=== PATIENT | male | born 1950 | race African-American/Black ===

== ENCOUNTER 2016-08-17 15:50 | Inpatient (IN) | payer MEDICAID ==
[~2016-08-17] VITALS: Ht 182.9 cm; Wt 88.1 kg
[~2016-08-17 15:50] MED LIST: ACET160S3 GT; ALBU2.5V38 IH; AMIN30LI4 GT; ASCO500S2 GT; BLOO-697 IN; CALC500T3 GT; CARV6.252 GT; CLON0.1T GT; CYAN500T4 GT; DOCU50LI GT; DOXA2TAB GT; FERR220S2 GT; FOLI1TAB16 GT; HYDR-4077 GT; HYDR-552 GT; INSU100I19 SQ; INSU100V3 SQ; IPRA0.2S9 IH; LORA10TA68 GT; LORA1TAB82 GT; MULT-213 GT; NITR1OIN2 TD; NUT.237L67 GT; POLY15DR57 EACHEYE; SITA100T GT; THIA100V2 GT; TRAM50TA2 GT; ZINC220C8 GT
[2016-08-17 16:15] VITALS: BP 147/68
[2016-08-17] MEDS ORDERED: LORA0.5T GT (16:28)
[2016-08-17] MEDS ORDERED: NUT.237L30 GT (16:28)
[2016-08-17] MEDS ORDERED: ACID1TAB12 GT (16:28)
[2016-08-17] MEDS ORDERED: OMEP40CA37 GT (16:28)
[2016-08-17 17:03] LABS: HEMATOCRIT 23 % (39-51); MEAN CORPUSCULAR HEMOGLOBIN 19 PG (26.0-33.0); MEAN CORPUSCULAR HGB CONC 26 g/dl (31.0-36.0); MEAN CORPUSCULAR VOLUME 70 fL (80-96); PLATELET COUNT (AUTO) 385 /CMM (150-450); WHITE BLOOD COUNT (AUTO) 23.4 K/uL (4.3-11.0)
[2016-08-17 17:06] LABS: HEMOGLOBIN 5.9 g/dL (13.5-17.5)
[2016-08-17 17:08] LABS: ANION GAP 14 (5-14); CALCIUM, SERUM 8.2 mg/dL (8.5-10.1); CARBON DIOXIDE 28 mmol/L (21-32); CHLORIDE 101 mmol/L (98-107); CREATININE 2.8 mg/dL (0.6-1.3); GFR 28 mL/min (>60); GLUCOSE 119 mg/dL (74-106); SODIUM SERUM 137 mmol/L (136-145); UREA NITROGEN, BLOOD 61 mg/dL (7-18)
[2016-08-17 17:11] LABS: INR 1.24 (0.87-1.13)
[2016-08-17 17:14] LABS: ALANINE AMINOTRANSFERASE 12 U/L (12-78); ALBUMIN 2.5 g/dL (3.4-5.0); ASPARTATE AMINOTRANSFERASE 9 U/L (15-37); BILIRUBIN,DIRECT 0.1 mg/dL (0.0-0.2); BILIRUBIN,TOTAL 0.3 mg/dL (0.2-1.0); INDIRECT BILIRUBIN 0.2 mg/dL (0.0-1.1); TOTAL PROTEIN, SERUM 8.3 g/dL (6.4-8.2); TROPONIN I < 0.017 ng/mL (0.00-0.056)
[2016-08-17 20:00] VITALS: BP_SYST 134; BP_DIAS 69; BP_DIAS 9
[2016-08-17] MEDS ORDERED: IPRATROPIUM NEB FS 0.5 MG/2.5 ML AMPUL.NEB IH PRN (20:00)
[2016-08-17] MEDS ORDERED: TRAMADOL HCL 50 MG TABLET GT PRN (20:00)
[2016-08-17] MEDS ORDERED: ALBUTEROL FS 2.5 MG/3 ML VIAL.NEB IH PRN (20:00)
[2016-08-17] MEDS ORDERED: LORAZEPAM 0.5 MG TABLET GT PRN (20:00)
[2016-08-17] MEDS ORDERED: SITAGLIPTIN PHOSPHATE 50 MG TABLET GT SCH (20:30)
[2016-08-17] MEDS ORDERED: DEXTROSE 50%-WATER 50 ML DISP.SYRIN IV PRN (20:30)
[2016-08-17] MEDS: DOXAZOSIN MESYLATE (1 MG) 1 MG TABLET GT SCH ×2 (20:55→21:00)
[2016-08-17] MEDS: hydrALAZINE HCL 50 MG TABLET GT SCH (20:55)
[2016-08-17] MEDS: CARVEDILOL 6.25 MG TABLET GT SCH (20:56)
[2016-08-17] MEDS: GLYTROL 1,000 ML BAG GT SCH (20:56)
[2016-08-17 21:43] LABS: EOSINOPHILS % (MANUAL) 2 % (0-4); LYMPHOCYTES % (MANUAL) 13 % (16-48)
[2016-08-17 21:45] LABS: PLATELET ESTIMATE ADEQUATE
[2016-08-17 21:46] LABS: ANISOCYTOSIS 1+; HYPOCHROMASIA 1+; MICROCYTOSIS 1+
[2016-08-18] VITALS: BP 129/55
[2016-08-18] MEDS ORDERED: BLOOD SUGAR DIAGNOSTIC 1 EACH STRIP IN SCH
[2016-08-18] MEDS: BLOOD SUGAR DIAGNOSTIC 1 EACH STRIP IN SCH ×4 (00:33→17:45)
[2016-08-18] MEDS ORDERED: NITROGLYCERIN PACKET 1 GM PACKET ONE (00:44)
[2016-08-18] MEDS: INSULIN REGULAR, HUMAN 100 UNIT/ML 3 ML VIAL SQ PRN ×4 (00:45→19:27)
[2016-08-18] MEDS: NITROGLYCERIN PACKET 1 GM PACKET TD SCH ×2 (00:51→05:27)
[2016-08-18] MEDS: IPRATROPIUM NEB FS 0.5 MG/2.5 ML AMPUL.NEB IH SCH ×4 (01:37→19:56)
[2016-08-18 04:00] VITALS: BP 142/61
[2016-08-18] MEDS: hydrALAZINE HCL 50 MG TABLET GT SCH ×3 (05:28→21:05)
[2016-08-18] MEDS: INSULIN DETEMIR 100 UNIT/ML CARTRIDGE SQ SCH ×2 (05:29→18:04)
[2016-08-18 06:45] LABS: BASOPHILS % (AUTO) 0.1 % (0.0-2.0); DIFF TOTAL % 100 %; EOSINOPHILS # (AUTO) 0.2 /CMM (0.0-0.7); LYMPHOCYTES # (AUTO) 1.3 /CMM (0.8-4.8); LYMPHOCYTES % (AUTO) 5.8 % (20.0-44.0); MEAN CORPUSCULAR HEMOGLOBIN 23 PG (26.0-33.0); MEAN CORPUSCULAR HGB CONC 32 g/dl (31.0-36.0); MEAN CORPUSCULAR VOLUME 71 fL (80-96); MONOCYTES % (AUTO) 4.5 % (2.0-12.0); NEUTROPHILS # (AUTO) 20.1 /CMM (1.8-8.9); NEUTROPHILS % (AUTO) 88.6 % (43.0-81.0); PLATELET COUNT (AUTO) 308 /CMM (150-450); RED BLOOD CELL COUNT(AUTO) 2.83 MIL/uL (4.5-6.0); WHITE BLOOD COUNT (AUTO) 22.7 K/uL (4.3-11.0)
[2016-08-18 07:05] LABS: POTASSIUM 4.9 mmol/L (3.5-5.1)
[2016-08-18 07:08] LABS: KETONES,URINE NEGATIVE (NEGATIVE); LEUKOCYTE ESTERASE ,URINE NEGATIVE (NEGATIVE); PH,URINE 7.5 (5.0-8.0)
[2016-08-18 07:19] LABS: ADD UA MICROSCOPIC YES
[2016-08-18 07:35] LABS: LACTIC ACID 0.6 mmol/L (0.4-2.0)
[2016-08-18] MEDS ORDERED: LEVALBUTEROL HCL NEB 1.25 MG/0.5 ML VIAL.NEB NEB SCH (07:35)
[2016-08-18 07:41] LABS: HEMOGLOBIN 6.5 g/dL (13.5-17.5)
[2016-08-18 07:42] LABS: HEMATOCRIT 20 % (39-51)
[2016-08-18 07:50] LABS: ADD URINE CULTURE NO; MUCUS,URINE Few /LPF (None Seen); RBC,URINE 0-2 /HPF (0-2); WBC,URINE 0-2 /HPF (0-3)
[2016-08-18] MEDS: ALBUTEROL FS 2.5 MG/3 ML VIAL.NEB IH SCH ×3 (07:52→19:56)
[2016-08-18 07:58] LABS: ANISOCYTOSIS 3+; BAND % (MANUAL) 10 % (0.0-5.0); EOSINOPHILS % (MANUAL) 2 % (0-4); LYMPHOCYTES % (MANUAL) 3 % (16-48); MICROCYTOSIS 3+; PLATELET ESTIMATE ADEQUATE
[2016-08-18 07:59] LABS: HYPOCHROMASIA 2+; POLYCHROMASIA 1+; SPHEROCYTES 1+; TOXIC GRANULATION 1+
[2016-08-18 08:00] VITALS: BP 146/67
[2016-08-18] MEDS ORDERED: ASCORBIC ACID SYRUP 500 MG/5 ML UDC GT SCH (09:00)
[2016-08-18] MEDS: FERROUS SULFATE (325 MG) 325 MG/TAB TABLET GT SCH (09:28)
[2016-08-18] MEDS: SITAGLIPTIN PHOSPHATE 50 MG TABLET GT SCH (09:29)
[2016-08-18] MEDS: CYANOCOBALAMIN 500 MCG TABLET GT SCH (09:29)
[2016-08-18] MEDS: PANTOPRAZOLE 40 MG/PACK PACK GT SCH (09:29)
[2016-08-18] MEDS: ACIDOPHILUS/BULGARICUS 1 EACH TAB.CHEW GT SCH ×2 (09:30→17:59)
[2016-08-18] MEDS: DOCUSATE SODIUM LIQ 100 MG/10 ML UDC GT SCH (09:31)
[2016-08-18] MEDS: MULTIVIT, IRON, MIN NO. 8, FA 1 TAB TABLET GT SCH (09:31)
[2016-08-18] MEDS: FOLIC ACID 1 MG TABLET GT SCH (09:31)
[2016-08-18] MEDS: POLYVINYL ALCOHOL 15 ML BOTTLE EACHEYE SCH ×4 (09:31→21:05)
[2016-08-18] MEDS: THIAMINE HCL 100 MG TABLET GT SCH (09:31)
[2016-08-18] MEDS: CARVEDILOL 6.25 MG TABLET GT SCH ×2 (09:31→21:05)
[2016-08-18] MEDS: GLYTROL 1,000 ML BAG GT SCH ×2 (09:32→21:09)
[2016-08-18] MEDS ORDERED: Medication Not On Formulary EA (Omeprazole 40 MG) GT SCH (11:30)
[2016-08-18 12:00] VITALS: BP 139/78
[2016-08-18] MEDS: NITROGLYCERIN 30 GM TUBE TD SCH ×2 (12:40→18:04)
[2016-08-18] MEDS ORDERED: EPOETIN ALFA (20,000 UNIT) 20,000 UNIT/ML VIAL SQ ONE (15:00)
[2016-08-18 15:43] LABS: %FREE PSA 10.9 % (0-10); FREE PSA 0.29 ng/mL (0.00-45); THYROID STIMULATING HORMONE 3.95 uIU/mL (0.358-3.74); URIC ACID 7.4 mg/dL (2.6-7.2)
[2016-08-18 16:00] VITALS: BP 140/56
[2016-08-18 16:10] LABS: RETICULOCYTE COUNT 2.3 % (0.6-2.5)
[2016-08-18 16:45] LABS: ERYTHROCYTE SEDIMENTATION RATE > 140 MM/HR (0-20)
[2016-08-18 20:00] VITALS: BP 122/52
[2016-08-18] MEDS: DOXAZOSIN MESYLATE (1 MG) 1 MG TABLET GT SCH (21:05)
[2016-08-18] MEDS: ACETAMINOPHEN 650 MG/20.3 ML UDC GT PRN (21:09)
[2016-08-18] MEDS ORDERED: MEROPENEM 500 MG in IV NS 0.9% 50 ML IV SCH (21:30)
[2016-08-18] MEDS ORDERED: METRONIDAZOLE 500 MG TABLET ONE (22:27)
[2016-08-18] MEDS ORDERED: MEROPENEM 500 MG VIAL IV ONE (22:42)
[2016-08-18] MEDS ORDERED: BLOOD IV SET 1 EA INFUS.SET MC ONE (23:02)
[2016-08-18] MEDS ORDERED: IV SET PRIMARY PUMP SET 1 EA INFUS.SET MC ONE (23:03)
[2016-08-18] MEDS ORDERED: IV NS 0.9% 50 ML IV ONE (23:03)
[2016-08-18] MEDS ORDERED: IV NS 0.9% 250 ML IV ONE ×2 (23:03)
[2016-08-18] MEDS ORDERED: SECONDARY IV SET 1 EA INFUS.SET MC ONE (23:04)
[2016-08-19] VITALS (14 sets, daily range): BP systolic 101–159; BP diastolic 47–71
[2016-08-19] MEDS: BLOOD SUGAR DIAGNOSTIC 1 EACH STRIP IN SCH ×4 (00:06→17:04)
[2016-08-19] MEDS: INSULIN REGULAR, HUMAN 100 UNIT/ML 3 ML VIAL SQ PRN ×3 (00:18→17:05)
[2016-08-19] MEDS: METRONIDAZOLE 500 MG TABLET PO SCH ×4 (00:19→16:59)
[2016-08-19] MEDS: NITROGLYCERIN 30 GM TUBE TD SCH ×5 (00:30→17:06)
[2016-08-19] MEDS: IPRATROPIUM NEB FS 0.5 MG/2.5 ML AMPUL.NEB IH SCH ×4 (02:19→20:30)
[2016-08-19] MEDS: ALBUTEROL FS 2.5 MG/3 ML VIAL.NEB IH SCH ×4 (02:19→20:30)
[2016-08-19] MEDS ORDERED: IV NS 0.9% 250 ML IV ONE (03:33)
[2016-08-19] MEDS ORDERED: BLOOD IV SET 1 EA INFUS.SET MC ONE (03:33)
[2016-08-19] MEDS: INSULIN DETEMIR 100 UNIT/ML CARTRIDGE SQ SCH ×2 (05:48→17:05)
[2016-08-19] MEDS: hydrALAZINE HCL 50 MG TABLET GT SCH ×3 (05:53→20:12)
[2016-08-19 07:52] LABS: BASOPHILS % (AUTO) 0.1 % (0.0-2.0); DIFF TOTAL % 100 %; EOSINOPHILS # (AUTO) 0.2 /CMM (0.0-0.7); HEMATOCRIT 24 % (39-51); HEMOGLOBIN 7.8 g/dL (13.5-17.5); LYMPHOCYTES # (AUTO) 1.9 /CMM (0.8-4.8); LYMPHOCYTES % (AUTO) 9.4 % (20.0-44.0); MEAN CORPUSCULAR HEMOGLOBIN 25 PG (26.0-33.0); MEAN CORPUSCULAR HGB CONC 33 g/dl (31.0-36.0); MEAN CORPUSCULAR VOLUME 75 fL (80-96); MONOCYTES # (AUTO) 0.4 /CMM (0.1-1.30); MONOCYTES % (AUTO) 1.9 % (2.0-12.0); NEUTROPHILS # (AUTO) 17.9 /CMM (1.8-8.9); NEUTROPHILS % (AUTO) 87.6 % (43.0-81.0); PLATELET COUNT (AUTO) 290 /CMM (150-450); RED BLOOD CELL COUNT(AUTO) 3.17 MIL/uL (4.5-6.0); WHITE BLOOD COUNT (AUTO) 20.4 K/uL (4.3-11.0)
[2016-08-19 08:19] LABS: CALCIUM, SERUM 7.9 mg/dL (8.5-10.1); CREATININE 3.4 mg/dL (0.6-1.3); PHOSPHORUS 3.7 mg/dL (2.5-4.9)
[2016-08-19] MEDS: DOCUSATE SODIUM LIQ 100 MG/10 ML UDC GT SCH (08:28)
[2016-08-19] MEDS: MULTIVIT, IRON, MIN NO. 8, FA 1 TAB TABLET GT SCH (08:28)
[2016-08-19] MEDS: SITAGLIPTIN PHOSPHATE 50 MG TABLET GT SCH (08:29)
[2016-08-19] MEDS: THIAMINE HCL 100 MG TABLET GT SCH (08:29)
[2016-08-19] MEDS: CYANOCOBALAMIN 500 MCG TABLET GT SCH (08:29)
[2016-08-19] MEDS: FOLIC ACID 1 MG TABLET GT SCH (08:29)
[2016-08-19] MEDS: FERROUS SULFATE (325 MG) 325 MG/TAB TABLET GT SCH (08:29)
[2016-08-19] MEDS: ASCORBIC ACID 500 MG TABLET GT SCH (08:30)
[2016-08-19] MEDS: PANTOPRAZOLE 40 MG/PACK PACK GT SCH (08:30)
[2016-08-19] MEDS: CARVEDILOL 6.25 MG TABLET GT SCH ×2 (08:30→20:12)
[2016-08-19] MEDS: POLYVINYL ALCOHOL 15 ML BOTTLE EACHEYE SCH ×4 (08:33→20:52)
[2016-08-19] MEDS ORDERED: LINEZOLID 600 MG TABLET PO SCH (09:00)
[2016-08-19] MEDS ORDERED: ASCORBIC ACID 500 MG TABLET GT SCH (09:00)
[2016-08-19 09:05] LABS: ANISOCYTOSIS 2+; BAND % (MANUAL) 8 % (0.0-5.0); EOSINOPHILS % (MANUAL) 2 % (0-4); LYMPHOCYTES % (MANUAL) 10 % (16-48); METAMYELOCYTES % 1 % (0-0); MICROCYTOSIS 2+; MYELOCYTES % 1 % (0-0); PLATELET ESTIMATE ADEQUATE; SPHEROCYTES 1+
[2016-08-19 09:06] LABS: HYPOCHROMASIA 1+; POLYCHROMASIA 1+
[2016-08-19] MEDS: ACIDOPHILUS/BULGARICUS 1 EACH TAB.CHEW GT SCH ×2 (09:21→16:37)
[2016-08-19] MEDS: GLYTROL 1,000 ML BAG GT SCH (10:09)
[2016-08-19] MEDS: MEROPENEM 500 MG in IV NS 0.9% 50 ML IV SCH ×2 (10:36→20:51)
[2016-08-19] MEDS ORDERED: FEE PK DOSING 1 MIN EA MC ONE (11:27)
[2016-08-19] MEDS ORDERED: VANCOMYCIN 1.25 GM in IV D5W 500 ML IV SCH (12:00)
[2016-08-19] MEDS ORDERED: SECONDARY IV SET 1 EA INFUS.SET MC ONE (12:41)
[2016-08-19] MEDS ORDERED: VANCOMYCIN 1 GM in IV D5W 250 ML IV ONE (13:00)
[2016-08-19] MEDS: DOXAZOSIN MESYLATE (1 MG) 1 MG TABLET GT SCH (20:51)
[2016-08-19] MEDS: COLISTIMETHATE SODIUM 150 MG VIAL NEB SCH (21:51)
[2016-08-20] VITALS (8 sets, daily range): BP systolic 130–165; BP diastolic 63–81
[2016-08-20] MEDS: METRONIDAZOLE 500 MG TABLET PO SCH ×4 (00:11→17:23)
[2016-08-20] MEDS: NITROGLYCERIN 30 GM TUBE TD SCH ×4 (00:11→17:40)
[2016-08-20] MEDS: BLOOD SUGAR DIAGNOSTIC 1 EACH STRIP IN SCH ×4 (00:19→17:24)
[2016-08-20] MEDS: INSULIN REGULAR, HUMAN 100 UNIT/ML 3 ML VIAL SQ PRN ×4 (00:25→17:36)
[2016-08-20] MEDS: GLYTROL 1,000 ML BAG GT SCH ×2 (00:26→17:38)
[2016-08-20] MEDS: ALBUTEROL FS 2.5 MG/3 ML VIAL.NEB IH SCH ×4 (01:30→20:22)
[2016-08-20] MEDS: IPRATROPIUM NEB FS 0.5 MG/2.5 ML AMPUL.NEB IH SCH ×4 (01:30→20:22)
[2016-08-20] MEDS: hydrALAZINE HCL 50 MG TABLET GT SCH ×3 (05:08→21:57)
[2016-08-20] MEDS: INSULIN DETEMIR 100 UNIT/ML CARTRIDGE SQ SCH ×2 (05:31→17:41)
[2016-08-20 07:24] LABS: ALBUMIN 2.2 g/dL (3.4-5.0); BILIRUBIN,TOTAL 0.3 mg/dL (0.2-1.0); CREATININE 3.2 mg/dL (0.6-1.3); POTASSIUM 4.7 mmol/L (3.5-5.1); TOTAL PROTEIN, SERUM 8.1 g/dL (6.4-8.2)
[2016-08-20] MEDS: POLYVINYL ALCOHOL 15 ML BOTTLE EACHEYE SCH ×4 (08:43→21:56)
[2016-08-20] MEDS: DOCUSATE SODIUM LIQ 100 MG/10 ML UDC GT SCH (08:43)
[2016-08-20] MEDS: FOLIC ACID 1 MG TABLET GT SCH (08:44)
[2016-08-20] MEDS: CARVEDILOL 6.25 MG TABLET GT SCH ×2 (08:44→21:57)
[2016-08-20] MEDS: SITAGLIPTIN PHOSPHATE 50 MG TABLET GT SCH (08:44)
[2016-08-20] MEDS: FERROUS SULFATE (325 MG) 325 MG/TAB TABLET GT SCH (08:44)
[2016-08-20] MEDS: ACIDOPHILUS/BULGARICUS 1 EACH TAB.CHEW GT SCH ×2 (08:45→17:23)
[2016-08-20] MEDS: MULTIVIT, IRON, MIN NO. 8, FA 1 TAB TABLET GT SCH (08:45)
[2016-08-20] MEDS: PANTOPRAZOLE 40 MG/PACK PACK GT SCH (08:45)
[2016-08-20] MEDS: PROSOURCE / PROSTAT (PYXIS) 30 ML UDC GT SCH ×2 (08:45→17:24)
[2016-08-20] MEDS: ASCORBIC ACID 500 MG TABLET GT SCH (08:46)
[2016-08-20] MEDS: CYANOCOBALAMIN 500 MCG TABLET GT SCH (08:46)
[2016-08-20] MEDS: THIAMINE HCL 100 MG TABLET GT SCH (08:46)
[2016-08-20] MEDS: MEROPENEM 500 MG in IV NS 0.9% 50 ML IV SCH ×2 (09:08→21:57)
[2016-08-20] MEDS: COLISTIMETHATE SODIUM 150 MG VIAL NEB SCH ×2 (09:52→21:00)
[2016-08-20] MEDS: HYDROGEL DRESSING 90 GM TUBE TP SCH (12:24)
[2016-08-20 14:08] LABS: BASOPHILS % (AUTO) 0.2 % (0.0-2.0); DIFF TOTAL % 100 %; EOSINOPHILS # (AUTO) 0.7 /CMM (0.0-0.7); EOSINOPHILS % (AUTO) 4.1 % (0.0-6.0); HEMATOCRIT 27 % (39-51); HEMOGLOBIN 8.5 g/dL (13.5-17.5); LYMPHOCYTES # (AUTO) 1.8 /CMM (0.8-4.8); LYMPHOCYTES % (AUTO) 10.2 % (20.0-44.0); MEAN CORPUSCULAR HEMOGLOBIN 24 PG (26.0-33.0); MEAN CORPUSCULAR HGB CONC 32 g/dl (31.0-36.0); MEAN CORPUSCULAR VOLUME 75 fL (80-96); MONOCYTES # (AUTO) 0.1 /CMM (0.1-1.30); MONOCYTES % (AUTO) 0.6 % (2.0-12.0); NEUTROPHILS # (AUTO) 15.2 /CMM (1.8-8.9); NEUTROPHILS % (AUTO) 84.9 % (43.0-81.0); PLATELET COUNT (AUTO) 302 /CMM (150-450); RED BLOOD CELL COUNT(AUTO) 3.58 MIL/uL (4.5-6.0); WHITE BLOOD COUNT (AUTO) 17.9 K/uL (4.3-11.0)
[2016-08-20 14:31] LABS: BAND % (MANUAL) 9 % (0.0-5.0); EOSINOPHILS % (MANUAL) 4 % (0-4); LYMPHOCYTES % (MANUAL) 10 % (16-48)
[2016-08-20 14:32] LABS: PLATELET ESTIMATE ADEQUATE
[2016-08-20 14:34] LABS: ANISOCYTOSIS 2+; HYPOCHROMASIA 1+; MICROCYTOSIS 2+
[2016-08-20 14:35] LABS: SPHEROCYTES 1+
[2016-08-20] MEDS ORDERED: VANCOMYCIN 1 GM in IV D5W 250 ML IV ONE (17:00)
[2016-08-20] MEDS: UREA 10% -AHA 4% CREAM 57 GM TUBE TP SCH (17:24)
[2016-08-20] MEDS ORDERED: IV NS 0.9% 250 ML IV ONE (18:46)
[2016-08-20] MEDS: DOXAZOSIN MESYLATE (1 MG) 1 MG TABLET GT SCH (21:57)
[2016-08-21] VITALS: BP 114/52
[2016-08-21] MEDS: METRONIDAZOLE 500 MG TABLET PO SCH ×5 (00:19→23:39)
[2016-08-21] MEDS: COLISTIMETHATE SODIUM 150 MG VIAL NEB SCH ×3 (00:20→21:10)
[2016-08-21] MEDS: NITROGLYCERIN 30 GM TUBE TD SCH ×5 (00:20→23:39)
[2016-08-21] MEDS: BLOOD SUGAR DIAGNOSTIC 1 EACH STRIP IN SCH ×5 (00:24→23:38)
[2016-08-21] MEDS: INSULIN REGULAR, HUMAN 100 UNIT/ML 3 ML VIAL SQ PRN ×5 (00:26→23:47)
[2016-08-21 01:11] LABS: VIT D, 25-HYDROXY 19.5 ng/mL (30.0-100.0)
[2016-08-21] MEDS: ALBUTEROL FS 2.5 MG/3 ML VIAL.NEB IH SCH ×4 (02:05→19:19)
[2016-08-21] MEDS: IPRATROPIUM NEB FS 0.5 MG/2.5 ML AMPUL.NEB IH SCH ×4 (02:05→19:19)
[2016-08-21 04:00] VITALS: BP 162/76
[2016-08-21] MEDS ORDERED: IV NS 0.9% 250 ML IV ONE (05:06)
[2016-08-21] MEDS: hydrALAZINE HCL 50 MG TABLET GT SCH ×3 (05:29→21:36)
[2016-08-21] MEDS: INSULIN DETEMIR 100 UNIT/ML CARTRIDGE SQ SCH ×2 (05:32→18:03)
[2016-08-21] MEDS: GLYTROL 1,000 ML BAG GT SCH ×2 (05:35→18:11)
[2016-08-21 07:16] LABS: BASOPHILS % (AUTO) 0.2 % (0.0-2.0); DIFF TOTAL % 100 %; EOSINOPHILS # (AUTO) 1.1 /CMM (0.0-0.7); EOSINOPHILS % (AUTO) 5.9 % (0.0-6.0); HEMATOCRIT 28 % (39-51); HEMOGLOBIN 9.1 g/dL (13.5-17.5); LYMPHOCYTES # (AUTO) 1.3 /CMM (0.8-4.8); LYMPHOCYTES % (AUTO) 6.8 % (20.0-44.0); MEAN CORPUSCULAR HEMOGLOBIN 25 PG (26.0-33.0); MEAN CORPUSCULAR HGB CONC 32 g/dl (31.0-36.0); MEAN CORPUSCULAR VOLUME 76 fL (80-96); MONOCYTES # (AUTO) 1.3 /CMM (0.1-1.30); MONOCYTES % (AUTO) 6.8 % (2.0-12.0); NEUTROPHILS # (AUTO) 14.7 /CMM (1.8-8.9); NEUTROPHILS % (AUTO) 80.3 % (43.0-81.0); PLATELET COUNT (AUTO) 306 /CMM (150-450); RED BLOOD CELL COUNT(AUTO) 3.66 MIL/uL (4.5-6.0); WHITE BLOOD COUNT (AUTO) 18.3 K/uL (4.3-11.0)
[2016-08-21 07:51] LABS: CALCIUM, SERUM 8.1 mg/dL (8.5-10.1); CREATININE 2.9 mg/dL (0.6-1.3); PHOSPHORUS 3.3 mg/dL (2.5-4.9)
[2016-08-21 08:00] VITALS: BP 160/80
[2016-08-21] MEDS: PROSOURCE / PROSTAT (PYXIS) 30 ML UDC GT SCH ×2 (08:22→16:01)
[2016-08-21] MEDS: CYANOCOBALAMIN 500 MCG TABLET GT SCH (08:23)
[2016-08-21] MEDS: FOLIC ACID 1 MG TABLET GT SCH (08:23)
[2016-08-21] MEDS: THIAMINE HCL 100 MG TABLET GT SCH (08:23)
[2016-08-21] MEDS: MULTIVIT, IRON, MIN NO. 8, FA 1 TAB TABLET GT SCH (08:23)
[2016-08-21] MEDS: FERROUS SULFATE (325 MG) 325 MG/TAB TABLET GT SCH (08:23)
[2016-08-21] MEDS: ACIDOPHILUS/BULGARICUS 1 EACH TAB.CHEW GT SCH ×2 (08:23→16:01)
[2016-08-21] MEDS: PANTOPRAZOLE 40 MG/PACK PACK GT SCH (08:23)
[2016-08-21 08:24] LABS: *IFE A/G RATIO 0.6 (0.7-1.7); *IFE ALBUMIN 2.5 g/dL (2.9-4.4); *IFE GAMMA GLOBULIN 2.4 g/dL (0.4-1.8); *IFE M-SPIKE Not Observed g/dL (Not Observed); *IFEALPHA-1-GLOBULIN 0.5 g/dL (0.0-0.4)
[2016-08-21] MEDS: CARVEDILOL 6.25 MG TABLET GT SCH ×2 (08:24→21:36)
[2016-08-21] MEDS: SITAGLIPTIN PHOSPHATE 50 MG TABLET GT SCH (08:24)
[2016-08-21] MEDS: DOCUSATE SODIUM LIQ 100 MG/10 ML UDC GT SCH (08:24)
[2016-08-21] MEDS: ASCORBIC ACID 500 MG TABLET GT SCH (08:24)
[2016-08-21] MEDS: UREA 10% -AHA 4% CREAM 57 GM TUBE TP SCH ×2 (08:25→16:02)
[2016-08-21] MEDS: POLYVINYL ALCOHOL 15 ML BOTTLE EACHEYE SCH ×4 (08:25→21:36)
[2016-08-21] MEDS: HYDROGEL DRESSING 90 GM TUBE TP SCH (08:25)
[2016-08-21] MEDS: MEROPENEM 500 MG in IV NS 0.9% 50 ML IV SCH ×2 (10:26→21:37)
[2016-08-21 12:00] VITALS: BP 143/74
[2016-08-21 16:00] VITALS: BP 163/70
[2016-08-21 20:00] VITALS: BP 163/79
[2016-08-21] MEDS: DOXAZOSIN MESYLATE (1 MG) 1 MG TABLET GT SCH (21:36)
[2016-08-22] VITALS: BP 164/63
[2016-08-22] MEDS: ALBUTEROL FS 2.5 MG/3 ML VIAL.NEB IH SCH ×4 (01:32→19:39)
[2016-08-22] MEDS: IPRATROPIUM NEB FS 0.5 MG/2.5 ML AMPUL.NEB IH SCH ×4 (01:32→19:39)
[2016-08-22 04:00] VITALS: BP 173/83
[2016-08-22] MEDS ORDERED: IV NS 0.9% 250 ML IV ONE (05:12)
[2016-08-22] MEDS: hydrALAZINE HCL 50 MG TABLET GT SCH ×3 (05:43→21:00)
[2016-08-22] MEDS: METRONIDAZOLE 500 MG TABLET PO SCH ×3 (05:43→18:39)
[2016-08-22] MEDS: CLONIDINE HCL 0.1 MG TABLET GT PRN (05:44)
[2016-08-22] MEDS: NITROGLYCERIN 30 GM TUBE TD SCH ×3 (05:45→18:44)
[2016-08-22] MEDS: BLOOD SUGAR DIAGNOSTIC 1 EACH STRIP IN SCH ×4 (05:45→23:50)
[2016-08-22] MEDS: GLYTROL 1,000 ML BAG GT SCH ×2 (05:47→19:08)
[2016-08-22] MEDS: INSULIN DETEMIR 100 UNIT/ML CARTRIDGE SQ SCH ×2 (05:48→18:42)
[2016-08-22] MEDS: INSULIN REGULAR, HUMAN 100 UNIT/ML 3 ML VIAL SQ PRN ×2 (05:49→18:43)
[2016-08-22 07:10] LABS: BASOPHILS # (AUTO) 0.1 /CMM (0.0-0.2); BASOPHILS % (AUTO) 0.5 % (0.0-2.0); DIFF TOTAL % 100 %; EOSINOPHILS # (AUTO) 1.1 /CMM (0.0-0.7); EOSINOPHILS % (AUTO) 7.6 % (0.0-6.0); HEMATOCRIT 25 % (39-51); HEMOGLOBIN 8.3 g/dL (13.5-17.5); LYMPHOCYTES # (AUTO) 1.8 /CMM (0.8-4.8); LYMPHOCYTES % (AUTO) 12.2 % (20.0-44.0); MEAN CORPUSCULAR HEMOGLOBIN 25 PG (26.0-33.0); MEAN CORPUSCULAR HGB CONC 33 g/dl (31.0-36.0); MEAN CORPUSCULAR VOLUME 75 fL (80-96); MONOCYTES % (AUTO) 6.8 % (2.0-12.0); NEUTROPHILS # (AUTO) 10.8 /CMM (1.8-8.9); NEUTROPHILS % (AUTO) 72.9 % (43.0-81.0); PLATELET COUNT (AUTO) 319 /CMM (150-450); RED BLOOD CELL COUNT(AUTO) 3.36 MIL/uL (4.5-6.0); WHITE BLOOD COUNT (AUTO) 14.8 K/uL (4.3-11.0)
[2016-08-22 08:00] VITALS: BP 139/72
[2016-08-22] MEDS: POLYVINYL ALCOHOL 15 ML BOTTLE EACHEYE SCH ×4 (09:00→20:59)
[2016-08-22] MEDS: UREA 10% -AHA 4% CREAM 57 GM TUBE TP SCH ×2 (09:00→17:00)
[2016-08-22] MEDS: HYDROGEL DRESSING 90 GM TUBE TP SCH (09:00)
[2016-08-22] MEDS: DOCUSATE SODIUM LIQ 100 MG/10 ML UDC GT SCH (09:08)
[2016-08-22] MEDS: ACETAMINOPHEN 650 MG/20.3 ML UDC GT PRN (09:08)
[2016-08-22] MEDS: PROSOURCE / PROSTAT (PYXIS) 30 ML UDC GT SCH ×2 (09:08→17:00)
[2016-08-22] MEDS: ASCORBIC ACID 500 MG TABLET GT SCH (09:09)
[2016-08-22] MEDS: THIAMINE HCL 100 MG TABLET GT SCH (09:09)
[2016-08-22] MEDS: PANTOPRAZOLE 40 MG/PACK PACK GT SCH (09:09)
[2016-08-22] MEDS: ACIDOPHILUS/BULGARICUS 1 EACH TAB.CHEW GT SCH ×2 (09:09→18:39)
[2016-08-22] MEDS: SITAGLIPTIN PHOSPHATE 50 MG TABLET GT SCH (09:09)
[2016-08-22] MEDS: CARVEDILOL 6.25 MG TABLET GT SCH ×2 (09:09→21:00)
[2016-08-22] MEDS: CYANOCOBALAMIN 500 MCG TABLET GT SCH (09:09)
[2016-08-22] MEDS: FOLIC ACID 1 MG TABLET GT SCH (09:10)
[2016-08-22] MEDS: FERROUS SULFATE (325 MG) 325 MG/TAB TABLET GT SCH (09:10)
[2016-08-22] MEDS: MEROPENEM 500 MG in IV NS 0.9% 50 ML IV SCH ×2 (09:18→21:01)
[2016-08-22] MEDS: MULTIVIT, IRON, MIN NO. 8, FA 1 TAB TABLET GT SCH (10:32)
[2016-08-22 12:00] VITALS: BP 149/76
[2016-08-22 12:48] LABS: ALBUMIN 2.2 g/dL (3.4-5.0); BILIRUBIN,TOTAL 0.2 mg/dL (0.2-1.0); CALCIUM, SERUM 8.1 mg/dL (8.5-10.1); CREATININE 2.8 mg/dL (0.6-1.3); POTASSIUM 4.9 mmol/L (3.5-5.1); TOTAL PROTEIN, SERUM 7.7 g/dL (6.4-8.2)
[2016-08-22] MEDS: COLISTIMETHATE SODIUM 150 MG VIAL NEB SCH ×2 (13:22→21:25)
[2016-08-22 16:00] VITALS: BP 151/71
[2016-08-22 20:00] VITALS: BP 136/81
[2016-08-22] MEDS: MUPIROCIN OINT 2% 22 GM TUBE SCH (20:58)
[2016-08-22] MEDS: DOXAZOSIN MESYLATE (1 MG) 1 MG TABLET GT SCH (21:01)
[2016-08-23] VITALS: BP 158/80
[2016-08-23] MEDS: INSULIN REGULAR, HUMAN 100 UNIT/ML 3 ML VIAL SQ PRN ×3 (00:05→17:21)
[2016-08-23] MEDS: METRONIDAZOLE 500 MG TABLET PO SCH ×4 (00:05→17:15)
[2016-08-23] MEDS: NITROGLYCERIN 30 GM TUBE TD SCH ×4 (00:07→17:18)
[2016-08-23] MEDS: IPRATROPIUM NEB FS 0.5 MG/2.5 ML AMPUL.NEB IH SCH ×4 (00:51→19:43)
[2016-08-23] MEDS: ALBUTEROL FS 2.5 MG/3 ML VIAL.NEB IH SCH ×4 (00:51→19:43)
[2016-08-23 04:00] VITALS: BP 137/70
[2016-08-23] MEDS: hydrALAZINE HCL 50 MG TABLET GT SCH ×3 (05:05→20:53)
[2016-08-23] MEDS: BLOOD SUGAR DIAGNOSTIC 1 EACH STRIP IN SCH ×3 (05:06→17:15)
[2016-08-23] MEDS: INSULIN DETEMIR 100 UNIT/ML CARTRIDGE SQ SCH ×2 (05:08→17:22)
[2016-08-23 07:51] LABS: CALCIUM, SERUM 8.4 mg/dL (8.5-10.1); CREATININE 2.7 mg/dL (0.6-1.3); POTASSIUM 5.1 mmol/L (3.5-5.1)
[2016-08-23 08:00] VITALS: BP 142/69
[2016-08-23] MEDS: COLISTIMETHATE SODIUM 150 MG VIAL NEB SCH ×2 (09:00→20:06)
[2016-08-23] MEDS: DOCUSATE SODIUM LIQ 100 MG/10 ML UDC GT SCH (09:03)
[2016-08-23] MEDS: THIAMINE HCL 100 MG TABLET GT SCH (09:03)
[2016-08-23] MEDS: FERROUS SULFATE (325 MG) 325 MG/TAB TABLET GT SCH (09:03)
[2016-08-23] MEDS: ACIDOPHILUS/BULGARICUS 1 EACH TAB.CHEW GT SCH ×2 (09:03→17:15)
[2016-08-23] MEDS ORDERED: IV NS 0.9% 250 ML IV ONE (09:04)
[2016-08-23] MEDS: FOLIC ACID 1 MG TABLET GT SCH (09:04)
[2016-08-23] MEDS: CYANOCOBALAMIN 500 MCG TABLET GT SCH (09:04)
[2016-08-23] MEDS: POLYVINYL ALCOHOL 15 ML BOTTLE EACHEYE SCH ×4 (09:04→20:54)
[2016-08-23] MEDS: ASCORBIC ACID 500 MG TABLET GT SCH (09:04)
[2016-08-23] MEDS: PROSOURCE / PROSTAT (PYXIS) 30 ML UDC GT SCH ×2 (09:04→17:15)
[2016-08-23] MEDS: MULTIVIT, IRON, MIN NO. 8, FA 1 TAB TABLET GT SCH (09:04)
[2016-08-23] MEDS ORDERED: IV SET PRIMARY PUMP SET 1 EA INFUS.SET MC ONE (09:04)
[2016-08-23] MEDS: PANTOPRAZOLE 40 MG/PACK PACK GT SCH (09:04)
[2016-08-23] MEDS: CARVEDILOL 6.25 MG TABLET GT SCH ×2 (09:05→20:53)
[2016-08-23] MEDS ORDERED: SECONDARY IV SET 1 EA INFUS.SET MC ONE (09:05)
[2016-08-23] MEDS: UREA 10% -AHA 4% CREAM 57 GM TUBE TP SCH ×2 (09:09→17:18)
[2016-08-23] MEDS: MEROPENEM 500 MG in IV NS 0.9% 50 ML IV SCH ×2 (09:09→21:01)
[2016-08-23] MEDS: MUPIROCIN OINT 2% 22 GM TUBE SCH ×2 (09:10→20:55)
[2016-08-23] MEDS: SITAGLIPTIN PHOSPHATE 50 MG TABLET GT SCH (09:10)
[2016-08-23] MEDS: HYDROGEL DRESSING 90 GM TUBE TP SCH (09:10)
[2016-08-23 12:00] VITALS: BP 159/71
[2016-08-23] MEDS ORDERED: EPOETIN ALFA (20,000 UNIT) 20,000 UNIT/ML VIAL SQ ONE (12:00)
[2016-08-23 16:00] VITALS: BP 159/69
[2016-08-23 20:00] VITALS: BP 171/74
[2016-08-23] MEDS: GLYTROL 1,000 ML BAG GT SCH (20:52)
[2016-08-23] MEDS: Z GUARD REMEDY 2 OZ OINT TP PRN (20:54)
[2016-08-23] MEDS ORDERED: MUPIROCIN OINT 2% 22 GM TUBE SCH (21:00)
[2016-08-23] MEDS: DOXAZOSIN MESYLATE (1 MG) 1 MG TABLET GT SCH (21:01)
[2016-08-24] VITALS: BP 125/74
[2016-08-24] MEDS: METRONIDAZOLE 500 MG TABLET PO SCH ×4 (00:35→17:58)
[2016-08-24] MEDS: NITROGLYCERIN 30 GM TUBE TD SCH ×5 (00:36→23:39)
[2016-08-24] MEDS: INSULIN REGULAR, HUMAN 100 UNIT/ML 3 ML VIAL SQ PRN ×5 (00:37→23:50)
[2016-08-24] MEDS: BLOOD SUGAR DIAGNOSTIC 1 EACH STRIP IN SCH ×5 (00:37→23:46)
[2016-08-24] MEDS: IPRATROPIUM NEB FS 0.5 MG/2.5 ML AMPUL.NEB IH SCH ×4 (01:27→20:13)
[2016-08-24] MEDS: ALBUTEROL FS 2.5 MG/3 ML VIAL.NEB IH SCH ×4 (01:27→20:13)
[2016-08-24 04:00] VITALS: BP 166/82
[2016-08-24] MEDS: hydrALAZINE HCL 50 MG TABLET GT SCH ×3 (05:08→20:06)
[2016-08-24] MEDS: INSULIN DETEMIR 100 UNIT/ML CARTRIDGE SQ SCH ×2 (05:13→18:03)
[2016-08-24 07:48] LABS: CALCIUM, SERUM 8.6 mg/dL (8.5-10.1); CREATININE 2.5 mg/dL (0.6-1.3); PHOSPHORUS 3.7 mg/dL (2.5-4.9); POTASSIUM 5.5 mmol/L (3.5-5.1)
[2016-08-24 07:58] LABS: BASOPHILS # (AUTO) 0.1 /CMM (0.0-0.2); BASOPHILS % (AUTO) 0.7 % (0.0-2.0); DIFF TOTAL % 100 %; EOSINOPHILS # (AUTO) 0.9 /CMM (0.0-0.7); EOSINOPHILS % (AUTO) 5.4 % (0.0-6.0); HEMATOCRIT 32 % (39-51); HEMOGLOBIN 10.2 g/dL (13.5-17.5); LYMPHOCYTES # (AUTO) 1.7 /CMM (0.8-4.8); LYMPHOCYTES % (AUTO) 10.3 % (20.0-44.0); MEAN CORPUSCULAR HEMOGLOBIN 24 PG (26.0-33.0); MEAN CORPUSCULAR HGB CONC 32 g/dl (31.0-36.0); MEAN CORPUSCULAR VOLUME 76 fL (80-96); MONOCYTES % (AUTO) 5.9 % (2.0-12.0); NEUTROPHILS # (AUTO) 13.1 /CMM (1.8-8.9); NEUTROPHILS % (AUTO) 77.7 % (43.0-81.0); PLATELET COUNT (AUTO) 364 /CMM (150-450); RED BLOOD CELL COUNT(AUTO) 4.28 MIL/uL (4.5-6.0); WHITE BLOOD COUNT (AUTO) 16.8 K/uL (4.3-11.0)
[2016-08-24 08:00] VITALS: BP 146/65
[2016-08-24] MEDS: CYANOCOBALAMIN 500 MCG TABLET GT SCH (08:49)
[2016-08-24] MEDS: PROSOURCE / PROSTAT (PYXIS) 30 ML UDC GT SCH ×2 (08:49→17:58)
[2016-08-24] MEDS: FOLIC ACID 1 MG TABLET GT SCH (08:49)
[2016-08-24] MEDS: PANTOPRAZOLE 40 MG/PACK PACK GT SCH (08:49)
[2016-08-24] MEDS: SITAGLIPTIN PHOSPHATE 50 MG TABLET GT SCH (08:49)
[2016-08-24] MEDS: ASCORBIC ACID 500 MG TABLET GT SCH (08:49)
[2016-08-24] MEDS: DOCUSATE SODIUM LIQ 100 MG/10 ML UDC GT SCH (08:49)
[2016-08-24] MEDS: THIAMINE HCL 100 MG TABLET GT SCH (08:50)
[2016-08-24] MEDS: ACIDOPHILUS/BULGARICUS 1 EACH TAB.CHEW GT SCH ×2 (08:50→17:58)
[2016-08-24] MEDS: FERROUS SULFATE (325 MG) 325 MG/TAB TABLET GT SCH (08:50)
[2016-08-24] MEDS: MULTIVIT, IRON, MIN NO. 8, FA 1 TAB TABLET GT SCH (08:50)
[2016-08-24] MEDS: CARVEDILOL 6.25 MG TABLET GT SCH ×2 (08:50→20:06)
[2016-08-24] MEDS: HYDROGEL DRESSING 90 GM TUBE TP SCH (08:52)
[2016-08-24] MEDS: Z GUARD REMEDY 2 OZ OINT TP PRN (08:52)
[2016-08-24] MEDS: MUPIROCIN OINT 2% 22 GM TUBE SCH ×2 (08:53→20:07)
[2016-08-24] MEDS: UREA 10% -AHA 4% CREAM 57 GM TUBE TP SCH ×2 (08:53→18:00)
[2016-08-24] MEDS: POLYVINYL ALCOHOL 15 ML BOTTLE EACHEYE SCH ×4 (08:53→20:07)
[2016-08-24] MEDS: GLYTROL 1,000 ML BAG GT SCH ×2 (09:09→22:41)
[2016-08-24] MEDS: MEROPENEM 500 MG in IV NS 0.9% 50 ML IV SCH ×2 (09:09→22:18)
[2016-08-24] MEDS: COLISTIMETHATE SODIUM 150 MG VIAL NEB SCH (09:25)
[2016-08-24 12:00] VITALS: BP_SYST 148; BP_DIAS 76; BP_DIAS 96
[2016-08-24] MEDS ORDERED: SODIUM POLYSTYRENE SULFONATE 15 G/60 ML BOTTLE PO ONE (13:30)
[2016-08-24 16:00] VITALS: BP 162/86
[2016-08-24 20:00] VITALS: BP_SYST 190; BP_DIAS 97; BP_DIAS 99
[2016-08-24] MEDS: VORICONAZOLE 200 MG TABLET PO SCH (20:07)
[2016-08-24] MEDS: DOXAZOSIN MESYLATE (1 MG) 1 MG TABLET GT SCH (22:06)
[2016-08-25] VITALS: BP 174/85
[2016-08-25] MEDS: IPRATROPIUM NEB FS 0.5 MG/2.5 ML AMPUL.NEB IH SCH ×4 (01:37→20:25)
[2016-08-25] MEDS: ALBUTEROL FS 2.5 MG/3 ML VIAL.NEB IH SCH ×4 (01:37→20:25)
[2016-08-25] MEDS ORDERED: IV NS 0.9% 250 ML IV ONE (02:31)
[2016-08-25 04:00] VITALS: BP_SYST 171; BP_DIAS 74; BP_DIAS 75
[2016-08-25] MEDS: hydrALAZINE HCL 50 MG TABLET GT SCH ×3 (04:04→21:17)
[2016-08-25] MEDS: BLOOD SUGAR DIAGNOSTIC 1 EACH STRIP IN SCH ×4 (05:24→23:08)
[2016-08-25] MEDS: INSULIN DETEMIR 100 UNIT/ML CARTRIDGE SQ SCH ×2 (05:28→17:45)
[2016-08-25] MEDS: NITROGLYCERIN 30 GM TUBE TD SCH ×4 (05:32→23:08)
[2016-08-25 07:35] LABS: BASOPHILS % (AUTO) 0.3 % (0.0-2.0); DIFF TOTAL % 100 %; EOSINOPHILS # (AUTO) 0.9 /CMM (0.0-0.7); EOSINOPHILS % (AUTO) 5.3 % (0.0-6.0); HEMATOCRIT 28 % (39-51); HEMOGLOBIN 8.8 g/dL (13.5-17.5); LYMPHOCYTES # (AUTO) 1.7 /CMM (0.8-4.8); LYMPHOCYTES % (AUTO) 9.8 % (20.0-44.0); MEAN CORPUSCULAR HEMOGLOBIN 24 PG (26.0-33.0); MEAN CORPUSCULAR HGB CONC 32 g/dl (31.0-36.0); MEAN CORPUSCULAR VOLUME 75 fL (80-96); MONOCYTES # (AUTO) 0.6 /CMM (0.1-1.30); MONOCYTES % (AUTO) 3.8 % (2.0-12.0); NEUTROPHILS # (AUTO) 13.7 /CMM (1.8-8.9); NEUTROPHILS % (AUTO) 80.8 % (43.0-81.0); PLATELET COUNT (AUTO) 395 /CMM (150-450); RED BLOOD CELL COUNT(AUTO) 3.66 MIL/uL (4.5-6.0)
[2016-08-25 08:00] VITALS: BP 177/82
[2016-08-25 08:07] LABS: CALCIUM, SERUM 8.2 mg/dL (8.5-10.1); CREATININE 2.3 mg/dL (0.6-1.3); PHOSPHORUS 4.1 mg/dL (2.5-4.9); POTASSIUM 4.5 mmol/L (3.5-5.1)
[2016-08-25] MEDS: MULTIVIT, IRON, MIN NO. 8, FA 1 TAB TABLET GT SCH (09:01)
[2016-08-25] MEDS: CARVEDILOL 6.25 MG TABLET GT SCH ×2 (09:01→21:18)
[2016-08-25] MEDS: CYANOCOBALAMIN 500 MCG TABLET GT SCH (09:01)
[2016-08-25] MEDS: ACIDOPHILUS/BULGARICUS 1 EACH TAB.CHEW GT SCH ×2 (09:01→17:39)
[2016-08-25] MEDS: PANTOPRAZOLE 40 MG/PACK PACK GT SCH (09:01)
[2016-08-25] MEDS: DOCUSATE SODIUM LIQ 100 MG/10 ML UDC GT SCH (09:01)
[2016-08-25] MEDS: PROSOURCE / PROSTAT (PYXIS) 30 ML UDC GT SCH ×2 (09:01→17:39)
[2016-08-25] MEDS: THIAMINE HCL 100 MG TABLET GT SCH (09:02)
[2016-08-25] MEDS: ASCORBIC ACID 500 MG TABLET GT SCH (09:02)
[2016-08-25] MEDS: FERROUS SULFATE (325 MG) 325 MG/TAB TABLET GT SCH (09:02)
[2016-08-25] MEDS: SITAGLIPTIN PHOSPHATE 50 MG TABLET GT SCH (09:02)
[2016-08-25] MEDS: VORICONAZOLE 200 MG TABLET PO SCH ×2 (09:02→21:17)
[2016-08-25] MEDS: CLONIDINE HCL 0.1 MG TABLET GT PRN (09:02)
[2016-08-25] MEDS: FOLIC ACID 1 MG TABLET GT SCH (09:02)
[2016-08-25] MEDS: UREA 10% -AHA 4% CREAM 57 GM TUBE TP SCH ×2 (09:03→17:42)
[2016-08-25] MEDS: MUPIROCIN OINT 2% 22 GM TUBE SCH ×2 (09:03→21:18)
[2016-08-25] MEDS: POLYVINYL ALCOHOL 15 ML BOTTLE EACHEYE SCH ×4 (09:04→21:16)
[2016-08-25] MEDS: HYDROGEL DRESSING 90 GM TUBE TP SCH (09:04)
[2016-08-25] MEDS: MEROPENEM 500 MG in IV NS 0.9% 50 ML IV SCH ×2 (09:09→21:19)
[2016-08-25] MEDS ORDERED: Magnesium 1GM/D5W 100ML PREMIX 100 ML IV SCH (11:13)
[2016-08-25 12:00] VITALS: BP 162/78
[2016-08-25] MEDS: GLYTROL 1,000 ML BAG GT SCH (12:02)
[2016-08-25] MEDS ORDERED: SECONDARY IV SET 1 EA INFUS.SET MC ONE (12:03)
[2016-08-25] MEDS: INSULIN REGULAR, HUMAN 100 UNIT/ML 3 ML VIAL SQ PRN ×3 (12:04→23:14)
[2016-08-25 16:00] VITALS: BP 141/76
[2016-08-25 20:00] VITALS: BP 161/84
[2016-08-25] MEDS: DOXAZOSIN MESYLATE (1 MG) 1 MG TABLET GT SCH (21:17)
[2016-08-26] VITALS (7 sets, daily range): BP systolic 148–173; BP diastolic 63–87
[2016-08-26] MEDS: IPRATROPIUM NEB FS 0.5 MG/2.5 ML AMPUL.NEB IH SCH ×4 (02:25→19:20)
[2016-08-26] MEDS: ALBUTEROL FS 2.5 MG/3 ML VIAL.NEB IH SCH ×4 (02:25→19:20)
[2016-08-26] MEDS ORDERED: IV NS 0.9% 250 ML IV ONE (04:38)
[2016-08-26] MEDS ORDERED: IV NS 0.9% 250 ML IV PRN (05:00)
[2016-08-26] MEDS: GLYTROL 1,000 ML BAG GT SCH ×2 (05:40→17:23)
[2016-08-26] MEDS: hydrALAZINE HCL 50 MG TABLET GT SCH ×3 (05:41→21:25)
[2016-08-26] MEDS: BLOOD SUGAR DIAGNOSTIC 1 EACH STRIP IN SCH ×3 (05:41→17:06)
[2016-08-26] MEDS: NITROGLYCERIN 30 GM TUBE TD SCH ×3 (05:45→17:16)
[2016-08-26] MEDS: INSULIN DETEMIR 100 UNIT/ML CARTRIDGE SQ SCH ×2 (05:53→17:13)
[2016-08-26 08:55] LABS: BASOPHILS % (AUTO) 0.1 % (0.0-2.0); DIFF TOTAL % 100 %; EOSINOPHILS # (AUTO) 0.7 /CMM (0.0-0.7); EOSINOPHILS % (AUTO) 4.7 % (0.0-6.0); HEMATOCRIT 29 % (39-51); HEMOGLOBIN 9.2 g/dL (13.5-17.5); LYMPHOCYTES # (AUTO) 2.2 /CMM (0.8-4.8); LYMPHOCYTES % (AUTO) 14.9 % (20.0-44.0); MEAN CORPUSCULAR HEMOGLOBIN 24 PG (26.0-33.0); MEAN CORPUSCULAR HGB CONC 32 g/dl (31.0-36.0); MEAN CORPUSCULAR VOLUME 76 fL (80-96); MONOCYTES # (AUTO) 0.3 /CMM (0.1-1.30); NEUTROPHILS # (AUTO) 11.7 /CMM (1.8-8.9); NEUTROPHILS % (AUTO) 78.3 % (43.0-81.0); PLATELET COUNT (AUTO) 357 /CMM (150-450); RED BLOOD CELL COUNT(AUTO) 3.83 MIL/uL (4.5-6.0); WHITE BLOOD COUNT (AUTO) 14.9 K/uL (4.3-11.0)
[2016-08-26] MEDS: DOCUSATE SODIUM LIQ 100 MG/10 ML UDC GT SCH (09:00)
[2016-08-26] MEDS: MULTIVIT, IRON, MIN NO. 8, FA 1 TAB TABLET GT SCH (09:22)
[2016-08-26] MEDS: ACIDOPHILUS/BULGARICUS 1 EACH TAB.CHEW GT SCH ×2 (09:23→17:06)
[2016-08-26] MEDS: FOLIC ACID 1 MG TABLET GT SCH (09:23)
[2016-08-26] MEDS: VORICONAZOLE 200 MG TABLET PO SCH ×2 (09:23→21:25)
[2016-08-26] MEDS: CYANOCOBALAMIN 500 MCG TABLET GT SCH (09:23)
[2016-08-26] MEDS: PANTOPRAZOLE 40 MG/PACK PACK GT SCH (09:23)
[2016-08-26] MEDS: ASCORBIC ACID 500 MG TABLET GT SCH (09:23)
[2016-08-26] MEDS: FERROUS SULFATE (325 MG) 325 MG/TAB TABLET GT SCH (09:24)
[2016-08-26] MEDS: CARVEDILOL 6.25 MG TABLET GT SCH ×2 (09:24→20:53)
[2016-08-26] MEDS: POLYVINYL ALCOHOL 15 ML BOTTLE EACHEYE SCH ×4 (09:24→21:24)
[2016-08-26] MEDS: MUPIROCIN OINT 2% 22 GM TUBE SCH ×2 (09:25→21:26)
[2016-08-26] MEDS: THIAMINE HCL 100 MG TABLET GT SCH (09:25)
[2016-08-26] MEDS: HYDROGEL DRESSING 90 GM TUBE TP SCH (09:26)
[2016-08-26] MEDS: UREA 10% -AHA 4% CREAM 57 GM TUBE TP SCH ×2 (09:26→17:17)
[2016-08-26 09:27] LABS: CALCIUM, SERUM 8.3 mg/dL (8.5-10.1); CREATININE 2.4 mg/dL (0.6-1.3); PHOSPHORUS 4.2 mg/dL (2.5-4.9); POTASSIUM 4.6 mmol/L (3.5-5.1)
[2016-08-26] MEDS: SITAGLIPTIN PHOSPHATE 50 MG TABLET GT SCH (09:30)
[2016-08-26] MEDS: MEROPENEM 500 MG in IV NS 0.9% 50 ML IV SCH ×2 (09:30→21:00)
[2016-08-26] MEDS: PROSOURCE / PROSTAT (PYXIS) 30 ML UDC GT SCH ×2 (09:30→17:06)
[2016-08-26 10:51] LABS: EOSINOPHILS % (MANUAL) 5 % (0-4); HYPOCHROMASIA 2+; LYMPHOCYTES % (MANUAL) 18 % (16-48); PLATELET ESTIMATE ADEQUATE
[2016-08-26 10:52] LABS: ANISOCYTOSIS 3+
[2016-08-26] MEDS: INSULIN REGULAR, HUMAN 100 UNIT/ML 3 ML VIAL SQ PRN ×2 (11:37→17:14)
[2016-08-26] MEDS: CLONIDINE HCL 0.1 MG TABLET GT PRN (12:46)
[2016-08-26] MEDS: VANCOMYCIN 1 GM in IV D5W 250 ML IV SCH (13:08)
[2016-08-26] MEDS: DOXAZOSIN MESYLATE (1 MG) 1 MG TABLET GT SCH (21:25)
[2016-08-27] VITALS: BP 167/76
[2016-08-27] MEDS: BLOOD SUGAR DIAGNOSTIC 1 EACH STRIP IN SCH ×3 (00:33→12:09)
[2016-08-27] MEDS: INSULIN REGULAR, HUMAN 100 UNIT/ML 3 ML VIAL SQ PRN ×3 (00:34→12:07)
[2016-08-27] MEDS: NITROGLYCERIN 30 GM TUBE TD SCH ×3 (00:35→12:06)
[2016-08-27] MEDS: ALBUTEROL FS 2.5 MG/3 ML VIAL.NEB IH SCH ×3 (01:09→13:26)
[2016-08-27] MEDS: IPRATROPIUM NEB FS 0.5 MG/2.5 ML AMPUL.NEB IH SCH ×3 (01:09→13:26)
[2016-08-27 04:00] VITALS: BP 150/94
[2016-08-27] MEDS: hydrALAZINE HCL 50 MG TABLET GT SCH ×2 (05:21→12:07)
[2016-08-27] MEDS: INSULIN DETEMIR 100 UNIT/ML CARTRIDGE SQ SCH (05:24)
[2016-08-27 06:42] LABS: BASOPHILS % (AUTO) 0.2 % (0.0-2.0); DIFF TOTAL % 100 %; EOSINOPHILS # (AUTO) 0.8 /CMM (0.0-0.7); EOSINOPHILS % (AUTO) 5.4 % (0.0-6.0); HEMATOCRIT 31 % (39-51); HEMOGLOBIN 9.9 g/dL (13.5-17.5); LYMPHOCYTES % (AUTO) 13.4 % (20.0-44.0); MEAN CORPUSCULAR HEMOGLOBIN 24 PG (26.0-33.0); MEAN CORPUSCULAR HGB CONC 32 g/dl (31.0-36.0); MEAN CORPUSCULAR VOLUME 76 fL (80-96); MONOCYTES # (AUTO) 0.6 /CMM (0.1-1.30); MONOCYTES % (AUTO) 4.2 % (2.0-12.0); NEUTROPHILS # (AUTO) 11.4 /CMM (1.8-8.9); NEUTROPHILS % (AUTO) 76.8 % (43.0-81.0); PLATELET COUNT (AUTO) 394 /CMM (150-450); RED BLOOD CELL COUNT(AUTO) 4.05 MIL/uL (4.5-6.0); WHITE BLOOD COUNT (AUTO) 14.8 K/uL (4.3-11.0)
[2016-08-27 07:00] LABS: CALCIUM, SERUM 8.3 mg/dL (8.5-10.1); CREATININE 2.3 mg/dL (0.6-1.3); POTASSIUM 4.7 mmol/L (3.5-5.1)
[2016-08-27 08:00] VITALS: BP 175/81
[2016-08-27 08:25] LABS: ANISOCYTOSIS 1+; BAND % (MANUAL) 6 % (0.0-5.0); EOSINOPHILS % (MANUAL) 4 % (0-4); HYPOCHROMASIA 1+; LYMPHOCYTES % (MANUAL) 17 % (16-48); MICROCYTOSIS 1+; PLATELET ESTIMATE INCREASED
[2016-08-27 08:26] LABS: POIKILOCYTOSIS 1+; POLYCHROMASIA 1+; SPHEROCYTES 1+
[2016-08-27] MEDS: FOLIC ACID 1 MG TABLET GT SCH (08:29)
[2016-08-27] MEDS: PANTOPRAZOLE 40 MG/PACK PACK GT SCH (08:29)
[2016-08-27] MEDS: HYDROGEL DRESSING 90 GM TUBE TP SCH (08:29)
[2016-08-27] MEDS: ACIDOPHILUS/BULGARICUS 1 EACH TAB.CHEW GT SCH (08:29)
[2016-08-27] MEDS: FERROUS SULFATE (325 MG) 325 MG/TAB TABLET GT SCH (08:29)
[2016-08-27] MEDS: PROSOURCE / PROSTAT (PYXIS) 30 ML UDC GT SCH (08:29)
[2016-08-27] MEDS: MUPIROCIN OINT 2% 22 GM TUBE SCH (08:29)
[2016-08-27] MEDS: DOCUSATE SODIUM LIQ 100 MG/10 ML UDC GT SCH (08:29)
[2016-08-27] MEDS: THIAMINE HCL 100 MG TABLET GT SCH (08:30)
[2016-08-27] MEDS: SITAGLIPTIN PHOSPHATE 50 MG TABLET GT SCH (08:30)
[2016-08-27] MEDS: CARVEDILOL 6.25 MG TABLET GT SCH (08:30)
[2016-08-27] MEDS: VORICONAZOLE 200 MG TABLET PO SCH (08:30)
[2016-08-27] MEDS: ASCORBIC ACID 500 MG TABLET GT SCH (08:31)
[2016-08-27] MEDS: MULTIVIT, IRON, MIN NO. 8, FA 1 TAB TABLET GT SCH (08:31)
[2016-08-27] MEDS: CYANOCOBALAMIN 500 MCG TABLET GT SCH (08:31)
[2016-08-27] MEDS: POLYVINYL ALCOHOL 15 ML BOTTLE EACHEYE SCH ×2 (08:32→12:08)
[2016-08-27] MEDS: UREA 10% -AHA 4% CREAM 57 GM TUBE TP SCH (08:42)
[2016-08-27] MEDS: GLYTROL 1,000 ML BAG GT SCH (09:21)
[2016-08-27] MEDS ORDERED: VORI200T PO (09:41)
[2016-08-27] MEDS ORDERED: MERO500V IV (09:41)
[2016-08-27] MEDS ORDERED: VANC1PLA9 IV (09:41)
[2016-08-27] MEDS ORDERED: CARV12.5 PO (09:43)
[2016-08-27] MEDS: MEROPENEM 500 MG in IV NS 0.9% 50 ML IV SCH (09:53)
[2016-08-27 12:00] VITALS: BP 160/83
[2016-08-27 12:41] VITALS: BP 160/83
[2016-08-27] MEDS: VANCOMYCIN 1 GM in IV D5W 250 ML IV SCH (13:28)
[2016-08-27 16:00] VITALS: BP_SYST 155; BP_SYST 161; BP_DIAS 80; BP_DIAS 82
== END 2016-08-27 16:40 | DRG 720 ==
LOC: ER 15:53 → TELE1 18:25
PROVIDERS: ADMIT Internal Medicine Nephrology; ATTEND Internal Medicine Nephrology
PROC: 5A1955Z Respiratory Ventilation, Greater than 96 Consecutive Hours (ICD-10-PCS; principal; 2016-08-17)
PROC: 30233N1 Transfusion of Nonautologous Red Blood Cells into Peripheral Vein, Percutaneous Approach (ICD-10-PCS; 2016-08-19)
DX: A41.9 Sepsis, unspecified organism (principal); G93.40 Encephalopathy, unspecified; N17.9 Acute kidney failure, unspecified; Z99.11 Dependence on respirator [ventilator] status; J18.9 Pneumonia, unspecified organism; J90 Pleural effusion, not elsewhere classified; J96.11 Chronic respiratory failure with hypoxia; R53.2 Functional quadriplegia; Z93.0 Tracheostomy status; I13.0 Hypertensive heart and chronic kidney disease with heart failure and stage 1 through stage 4 chronic kidney disease, or unspecified chronic kidney disease; E11.22 Type 2 diabetes mellitus with diabetic chronic kidney disease; I25.10 Atherosclerotic heart disease of native coronary artery without angina pectoris; Z86.73 Personal history of transient ischemic attack (TIA), and cerebral infarction without residual deficits; Z95.1 Presence of aortocoronary bypass graft; R13.10 Dysphagia, unspecified; Z93.1 Gastrostomy status; L89.892 Pressure ulcer of other site, stage 2; Z86.14 Personal history of Methicillin resistant Staphylococcus aureus infection; N40.0 Benign prostatic hyperplasia without lower urinary tract symptoms; D63.8 Anemia in other chronic diseases classified elsewhere; D89.0 Polyclonal hypergammaglobulinemia; Z22.322 Carrier or suspected carrier of Methicillin resistant Staphylococcus aureus; F01.50 Vascular dementia, unspecified severity, without behavioral disturbance, psychotic disturbance, mood disturbance, and anxiety; I50.9 Heart failure, unspecified; N18.2 Chronic kidney disease, stage 2 (mild); R65.20 Severe sepsis without septic shock; K92.2 Gastrointestinal hemorrhage, unspecified; D75.89 Other specified diseases of blood and blood-forming organs
CPT/HCPCS: 31720; 36415; 71010-TC; 80048-TC; 80053-TC; 80076-TC; 80202-TC; 81000-TC; 82232; 82272-TC; 82306; 82378; 82728-TC; 82784; 82962-TC; 83010; 83540-TC; 83605-TC; 83615-TC; 83735-TC; 84100-TC; 84153-TC; 84154-TC; 84155; 84165; 84443-TC; 84484-TC; 84550-TC; 85025-TC; 85045-TC; 85652-TC; 85730-TC; 86334; 86850-TC; 86880-TC; 86921-TC; 87040-TC; 87070-TC; 87081-TC; 87086-TC; 87186-TC; 94003-TC; A4216; A4349; A4606; A6248; A6253; A6402; A6403; J0770; J0885; J1815; J2185; J3370; J3475; J7050; J7060; P9016-BL; Z7610